=== PATIENT | female | born 1955 | race African-American/Black ===

== ENCOUNTER 2025-03-09 13:11 | Emergency (ER) | payer MEDICARE ==
[~2025-03-09] VITALS: Ht 170.2 cm; Wt 95.0 kg
[2025-03-09 13:15] VITALS: O2SAT 98
[2025-03-09] MEDS: SODIUM CHLORIDE 0.9% 1,000 ML IV ONE (14:10)
[2025-03-09] MEDS: ONDANSETRON HCL 4MG/2ML INJ IV ONE (14:40)
[2025-03-09] MEDS: LEVETIRACETAM 1000MG PREMIX 100 ML IV ONE (14:40)
[2025-03-09] MEDS: MORPHINE SULFATE 4 MG/ML INJ (FOR IV/IM USE) IV ONE (14:40)
[2025-03-09] MEDS ORDERED: NICARDIPINE 40MG/200ML PREMIX 200 ML IV PRN (14:45)
[2025-03-09 15:49] LABS: BASOPHILS % 0.4 % (0.0-2.0); EOSINOPHILS % 1.7 % (0.0-5.0); HEMATOCRIT. 32.1 % (36.0-48.0); HEMOGLOBIN. 10.1 g/dL (12.0-16.0); LYMPHOCYTES % 9.7 % (20.0-50.0); MEAN PLATELET VOLUME 8.6 fl (7.4-10.4); MONOCYTES % 6.7 % (2.0-8.0); NEUTROPHILS % 81.5 % (40.0-76.0); PLATELET 187 x1000/uL (130-400); RED BLOOD CELL COUNT 4.36 mill/uL (4.2-5.4); RED CELL DISTRIBUTION WIDTH 16.2 % (11.6-14.6)
[2025-03-09 16:02] LABS: CREATININE 1.3 mg/dL (0.6-1.0); UREA NITROGEN BLOOD 26 mg/dL (9-23)
[2025-03-09 16:03] LABS: TROPONIN I HIGH SENSITIVITY 25 ng/L (3.0-34)
[2025-03-09 16:04] LABS: ASPARTATE AMINOTRANSFERASE 17 IU/L (<34)
[2025-03-09 16:05] LABS: BILIRUBIN DIRECT 0.2 mg/dL (<=3.0); BILIRUBIN TOTAL 0.5 mg/dL (0.1-1.0); PROTEIN TOTAL 6.7 g/dL (6.0-8.3)
[2025-03-09 21:52] VITALS: BP 116/62; PULSE 69; RESP 15; TEMP 36.8; O2SAT 98
== END 2025-03-09 22:10 | disposition short-term general hospital (02) ==
LOC: ER 13:11
DX: R55 Syncope and collapse (principal); I60.9 Nontraumatic subarachnoid hemorrhage, unspecified; N28.9 Disorder of kidney and ureter, unspecified; E11.9 Type 2 diabetes mellitus without complications; I10 Essential (primary) hypertension; Z85.118 Personal history of other malignant neoplasm of bronchus and lung
CPT/HCPCS: 99291; 96365; 70450; 96375; 80076; 80048; 85025; 84484; 36415; 71045; 93005; J1953; J2405; J2270; J7030